=== PATIENT | female | born 1980 | race Hispanic/Latino ===

== ENCOUNTER 2016-10-31 16:37 | Emergency (ER) ==
[2016-10-31 16:56] VITALS: BP 127/079
[2016-10-31] MEDS ORDERED: ULTRAM PO ONE (17:04)
--- NOTE | 2016-10-31 17:10 | PROVIDER DOCUMENTATION ---
HPI-Musculoskeletal Pain/Inj - GENERAL Chief Complaint: Extremity Injury Stated Complaint: EXTREMITY INJURY Time Seen by Provider: 10/31/16 17:01 Source: patient - HX OF PRESENT ILLNESS-MUSKULOSKELTAL Nature of Presenting Problem: 36 y/o femal c/o left ankle pain after stepping in a hole in the yard just lpta, and twisting the ankle. Does not know which wy it twisted, ws not able to ambulate right after the injury, and not able to bare weight right now. Denies hitting head or loc. took a tylenol before coming in. Quality of Pain: reports: aching ( does not radaiate) Severity in ED: mild Onset/Duration: just prior to arrival Timing: still present, constant Modifying Factors: improves with: movement (worse). worse with: analgesics Any recent injury?: Yes Locality of Occurance: Home Similar Symptoms Previously?: No Recently seen or treated by another doctor?: No Review of Systems - Adult - REVIEW OF SYSTEMS - ADULT Constitutional: reports: no symptoms reported. denies: chills, fever, fatique Eyes: reports: no symptoms reported. denies: blurred vision, double vision, eye pain Ears, Nose, Mouth & Throat: reports: no symptoms reported. denies: ear pain, nose pain, throat pain Cardiovascular: reports: no symptoms reported. denies: chest pain, palpitations Respiratory: reports: no symptoms reported. denies: cough, shortness of breath , wheezing Gastrointestinal: reports: no symptoms reported. denies: abdominal pain, difficulty swallowing, nausea, vomiting Genitourinary: reports: no symptoms reported. denies: dysuria, discharge, frequency Musculoskeletal: reports: see HPI, joint pain, joint swelling. denies: bone pain, back pain, muscle aches Integumentary: reports: no symptoms reported. denies: rash Neurological: reports: no symptoms reported. denies: headache/migraines Psychiatric: reports: no symptoms reported Endocrine: reports: no symptoms reported Hematologic/Lymphatic: reports: no symptoms reported Allergic/Immunologic: reports: no symptoms reported All Other Systems: Reviewed and Negative Past History - Adult - PAST MEDICAL HISTORY-ADULT Review of Records: reports: Old Records Reviewed, Nursing Assessment Review, Medications Reviewed, Social history reviewed & non-contributory. Major Childhood Illnesses: reports: denies history Cardiovascular: reports: denies history Respiratory: reports: denies history Gastrointestinal: reports: denies history Obstetrical/Gynecological: reports: other (about 12 weeks ) Genitourinary: reports: denies history Musculoskeletal: reports: denies history Neurological: reports: denies history Psychiatric: reports: denies history Endocrine/Immune: reports: denies history, thyroid disorder Other Conditions: reports: denies history - PRIOR SURGERIES/PROCEDURES Surgical/Procedure History: reports: - IMMUNIZATION STATUS Childhood Immunizations: See Nurse Assessment Flu Vaccine: See Nurse Assessment - FAMILY HISTORY Family History: reviewed, not pertinent - SOCIAL HISTORY Smoking: denies Substance Use: none/never Alcohol Use Frequency: never Physical Exam-Injury Related - Physical Exam-Injury Related Initial Vital Signs Reviewed: Yes General Appearance: appears well, alert, no apparent distress Eyes: PERRL/EOMI, pink conjunctivae Head, Ears, Nose, Mouth & Throat: normocephalic/atraumatic, moist mucous membranes Neck: non-tender, full range of motion, supple, normal inspection. negative: C- spine tenderness Respiratory: chest non-tender, lungs clear, normal breath sounds, no pleuratic chest pain, no respiratory distress, no accessory muscle use. negative: respiratory distress, decreased breath sounds, accessory muscle use, crackles, rales, rhonchi, stridor, wheezing Cardiovascular: normal peripheral pulses, regular rate, rhythm, no edema, no gallop, no JVD, no murmur. negative: tachycardia Peripheral Pulses: dorsalis-pedis (R): 2+, dorsalis-pedis (L): 2+ Lymphatic: no adenopathy Extremity: tenderness (lateral malleolus, with m inimal swelling.) Integumentary: normal color, warm/dry Neurologic: grossly normal, no motor/sensory deficits Psych/Mental Status: AL, normal mood/affect, normal thought content, normal thought process, oriented x 3 - Glascow Coma Score Best Eye Response (Andrew): (4) open spontaneously Best Verbal Response (Andrew): (5) oriented Best Motor Response ([place]): (6) obeys commands Progress - PLAN OF CARE/RESULTS Progress/Plan/Lab Results: Vital Signs Temp Pulse Resp BP Pulse Ox 10/31/16 16:53 97.6 F 80 16 127/079 97 No Known Allergies Allergy (Verified 10/31/16 16:56) No Home Medications 10/31/16 Orders Category Date Time Status Ab Wrap Application DIRECTED Care 10/31/16 17:27 Active Crutches DIRECTED Care 10/31/16 17:27 Active ANKLE COMPLETE LEFT [RAD] Stat Exams 10/31/16 17:04 Taken Tramadol [Ultram] Med 10/31/16 17:04 Discontinued 50 mg PO NOW ONE - XRAY 1 XRAY: Left XRAY Study: Ankle Impression: Normal (NAD reviewed c Dr. Jones) Procedures - SPLINTING Left Lower Extremity Other Location: ankle Pre-Procedure Neurovascular Exam: Intact Pre-Fabricated Splint: Ab Wrap Applied By: ED Nurse Procedure Comment: crutches given Departure - Departure Time of Disposition Order: 17:28 DIAGNOSIS: Left ankle sprain Qualifiers: Encounter type: initial encounter Involved ligament of ankle: calcaneofibular ligament Qualified Code(s): S93.412A - Sprain of calcaneofibular ligament of left ankle, initial encounter Disposition: HOME 01 Certified Medical Emergency: Emergent Condition: Stable Additional Instructions: If you continue having pain, follow up with [facility] ED Follow Up Instructions: You have been treated by a care provider in the Emergency Department. These instructions are being provided to you so you can have an understanding of how to care for yourself upon discharge. Upon discharge from the Emergency Department, you are responsible for making arrangements for follow-up care by a physician of your choice. Take all prescribed medications as directed. Return to the Emergency Department immediately for any new or worsening symptoms. You may call the Physician Referral phone number at [phone] to obtain a list of Physicians who are taking new patients. Prescriptions: Cyclobenzaprine [Flexeril] 10 mg PO TID #20 tablet Famotidine [Pepcid] 20 mg PO DAILY #20 tablet Ketorolac [Toradol] 10 mg PO Q6H PRN PRN #20 tablet PRN Reason: Pain Referrals: None,PCP [Primary Care Provider] - Hill Mae MD [STAFF PHYSICIAN] - Attestation - Physician/ Mid-level Attestation Patient care was provided by Mid-level provider (CLINICAL DATA SPECIALIST/PA):: Yes Mid-level provider:: Jennifer Carolina Mid-level documentation review:: The Mid-level provider documentation, treatment plan and medical decision making was reviewed by the physician who agrees with all treatment and medical decision making by the MLP.
--- NOTE | 2016-11-01 06:50 | Diag Imaging Result Document ---
PROCEDURE NAME: ANKLE COMPLETE LEFT - 10/31/2016 LEFT ANKLE, THREE VIEWS: FINDINGS: There is mild lateral soft tissue swelling. Small inferior calcaneal bone spur. No fracture. No dislocation. IMPRESSION: No acute bony injury.
== END 2016-10-31 17:50 | disposition home or self-care (01) ==
LOC: P.ED 16:37
DX: S93.412A Sprain of calcaneofibular ligament of left ankle, initial encounter (principal); M25.572 Pain in left ankle and joints of left foot; M25.472 Effusion, left ankle; X58.XXXA Exposure to other specified factors, initial encounter
CPT/HCPCS: 99284